=== PATIENT | female | born 1955 | race Caucasian/White ===

== ENCOUNTER → 2017-08-28 | Outpatient (CLI) | payer OTHER | LOC: FIMAGING 09:50 | PROVIDERS: ATTEND Nurse Practitioner Women's Health | DX: Z12.31 Encounter for screening mammogram for malignant neoplasm of breast (principal); Z13.820 Encounter for screening for osteoporosis; M85.80 Other specified disorders of bone density and structure, unspecified site; Z80.3 Family history of malignant neoplasm of breast; Z78.0 Asymptomatic menopausal state | CPT/HCPCS: G0202 ==